=== PATIENT | male | born 1950 | race Caucasian/White ===

== ENCOUNTER → 2018-11-14 | Outpatient (CLI) | payer OTHER ==
[~2018-11-14] MED LIST: ASPIR 8181 MG PO; ATENOLOL 100MG100 MG PO; CRESTOR10 MG PO; DOXYCYCLINE 10100 MG PO; HYDROCHLOROTHIA25 M2 PO; LISINOPRIL20 MG PO; NAPROSYN500 MG PO; NORCO 5-325 TA1 EACH PO; NORVASC5 MG PO; VENTOLIN HFA 1818 GM INH; VIAGRA50 MG PO; VYTORIN 10-401 EACH PO
== END ==
LOC: NUC 06:55
DX: I10 Essential (primary) hypertension (principal); E78.5 Hyperlipidemia, unspecified; I49.49 Other premature depolarization; J44.9 Chronic obstructive pulmonary disease, unspecified; Z82.49 Family history of ischemic heart disease and other diseases of the circulatory system; Z87.891 Personal history of nicotine dependence

== ENCOUNTER 2019-01-11 09:59 | Emergency (ER) | payer OTHER ==
[~2019-01-11] VITALS: Ht 177.8 cm; Wt 106.6 kg
[2019-01-11] MEDS ORDERED: SIMVASTATIN40 MG PO (10:13)
[2019-01-11] MEDS ORDERED: NORCO 5-325 TA1 EACH PO (11:05)
[2019-01-11 11:23] VITALS: BP 152/77
== END 2019-01-11 11:39 | disposition home or self-care (01) ==
LOC: ER 09:59
DX: S82.51XA Displaced fracture of medial malleolus of right tibia, initial encounter for closed fracture (principal); Z88.2 Allergy status to sulfonamides; M10.9 Gout, unspecified; I10 Essential (primary) hypertension; J44.9 Chronic obstructive pulmonary disease, unspecified; W10.9XXA Fall (on) (from) unspecified stairs and steps, initial encounter; Y92.89 Other specified places as the place of occurrence of the external cause; Y93.89 Activity, other specified; Y99.8 Other external cause status